=== PATIENT | female | born 1975 | race Caucasian/White ===

== ENCOUNTER 2025-02-25 20:16 | Emergency (ER) | payer MEDICAID, OTHER ==
[~2025-02-25] VITALS: Ht 149.9 cm; Wt 61.0 kg
[2025-02-25 20:20] VITALS: TEMP 36.8; O2SAT 98
[2025-02-25] MEDS ORDERED: DICYCLOMINE 10 MG/5 ML ORAL SYR PO STA (21:03)
[2025-02-25] MEDS ORDERED: ONDANSETRON 4MG ODT PO STA (21:03)
[2025-02-25 21:05] LABS: BASOPHILS % 0.4 % (0.0-2.0); EOSINOPHILS % 0.4 % (0.0-5.0); HEMOGLOBIN. 13.6 g/dL (12.0-16.0); MEAN CORPUSCULAR HEMOGLOBIN 29.8 pg (28.0-32.0); MEAN CORPUSCULAR HGB CONC 33.9 g/dL (31.0-37.0); MEAN CORPUSCULAR VOLUME 87.8 fL (81.0-99.0); MEAN PLATELET VOLUME 7.5 fl (7.4-10.4); MONOCYTES % 6.5 % (2.0-8.0); NEUTROPHILS % 72.7 % (40.0-76.0); PLATELET 322 x1000/uL (130-400); RED BLOOD CELL COUNT 4.55 mill/uL (4.2-5.4); RED CELL DISTRIBUTION WIDTH 12.5 % (11.6-14.6); WHITE BLOOD COUNT 9.2 x1000/uL (4.5-11.0)
[2025-02-25 21:15] LABS: CARBON DIOXIDE 22 mEq/L (21-32); CHLORIDE 102 mEq/L (98-107); INR 0.9; POTASSIUM 3.6 mEq/L (3.5-5.1); SODIUM 133 mEq/L (136-145)
[2025-02-25 21:16] LABS: CALCIUM 9.4 mg/dL (8.7-10.4)
[2025-02-25 21:18] LABS: BG DEOXYHEMOGLOBIN 7.7 % (0.0-5.0)
[2025-02-25 21:20] LABS: CREATININE 0.7 mg/dL (0.6-1.0)
[2025-02-25 21:21] LABS: ETHANOL BLOOD < 10 mg/dL (<10); UREA NITROGEN BLOOD 11 mg/dL (9-23)
[2025-02-25] MEDS: SODIUM CHLORIDE 0.9% 1,000 ML IV ONE (21:21)
[2025-02-25 21:22] LABS: ALANINE AMINOTRANSFERASE 12 IU/L (10-49); ASPARTATE AMINOTRANSFERASE 14 IU/L (<34)
[2025-02-25 21:23] LABS: BILIRUBIN DIRECT 0.3 mg/dL (<=3.0); BILIRUBIN TOTAL 1.6 mg/dL (0.1-1.0); PROTEIN TOTAL 6.9 g/dL (6.0-8.3)
[2025-02-25] MEDS: KETOROLAC 30MG/ML VIAL IV STA (21:26)
[2025-02-25] MEDS: MAGNESIUM/ALUMINUM HYDROXIDE/SIMETHICONE 30ML UDC PO STA (21:26)
[2025-02-25] MEDS: DICYCLOMINE HCL 10MG CAPSULE PO NR (21:26)
[2025-02-25] MEDS: ONDANSETRON HCL 4MG/2ML INJ IV STA (21:27)
[2025-02-25 21:28] LABS: GLUCOSE 422 mg/dL (70-105)
[2025-02-25 21:40] LABS: CLARITY URINE CLEAR (CLEAR); COLOR URINE YELLOW (YELLOW); GLUCOSE URINE 3+ (NEGATIVE); KETONES URINE 3+ (NEGATIVE); LEUKOCYTE ESTERASE URINE NEGATIVE (NEGATIVE); NITRITE URINE NEGATIVE (NEGATIVE); OCCULT BLOOD URINE NEGATIVE (NEGATIVE); PROTEIN URINE NEGATIVE (NEGATIVE); UROBILINOGEN URINE 0.2 E.U./dL (0.2-1.0)
[2025-02-25] MEDS ORDERED: DEXTROSE 50% WATER 50ML SYRINGE IV PRN (21:45)
[2025-02-25 21:57] LABS: BACTERIA URINE NONE SEEN; RBC URINE NONE SEEN /hpf (0-2); SQUAMOUS EPITHELIAL CELL URINE RARE /lpf (RARE/1+); WBC URINE 0-2 /hpf (0-2)
[2025-02-25 22:07] LABS: BETA HYDROXYBUTYRATE 1.5 mMol/L (0.0-0.3)
[2025-02-25] MEDS ORDERED: SODIUM CHLORIDE 0.9% 1,000 ML IV ONE (22:30)
[2025-02-25] MEDS ORDERED: FAMO-135 MT (22:32)
[2025-02-25] MEDS: INSULIN LISPRO 100 UNITS/ML SUBCUT STA (22:36)
[2025-02-25] MEDS ORDERED: FLUCONAZOLE 100MG TABLET PO ONE (22:45)
[2025-02-25] MEDS: FLUCONAZOLE 150MG TABLET PO NR (23:08)
[2025-02-25 23:15] VITALS: BP 113/63; PULSE 79; RESP 16; O2SAT 100
[2025-02-26] MEDS ORDERED: BLOOD SUGAR DIAGNOSTIC STRIP TEST SCH (09:00)
== END 2025-02-25 23:21 | disposition home or self-care (01) ==
LOC: ER 20:16
DX: K29.70 Gastritis, unspecified, without bleeding (principal); K76.0 Fatty (change of) liver, not elsewhere classified; E11.9 Type 2 diabetes mellitus without complications
CPT/HCPCS: 80076; 80048; 81003; 82010; 80320; 82962; 83690; 85025; 85610; 36415; 76700; 82375; 82803; 96361; 96372; 96374; 96375; 99285; J1815; J1885; J2405; J7030; G0480